=== PATIENT | female | born 1970 ===

== ENCOUNTER 2022-09-11 09:11 | Inpatient (IN) | payer OTHER ==
[~2022-09-11 09:11] MED LIST: Dexamethasone 4 MG/ML SDV ONE; Glycopyrrolate 0.2 MG/ML 5 ML MDV ONE; Neostigmine Methylsulfate 1 MG/ML 5 ML Syringe ONE; Ondansetron 4 MG/2 ML SDV ONE; Propofol 200 MG/20 ML SDV ONE; Rocuronium 50 MG/5 ML Vial ONE; Succinylcholine 200 MG/10 ML MDV ONE; fentaNYL 250 MCG/5 ML SDV ONE
[2022-09-11] MEDS ORDERED: Acetaminophen 500 MG Tab PO ONE (09:30)
[2022-09-11] MEDS ORDERED: Dextrose 5%-Lactated Ringers 1,000 ML IV SCH (09:30)
[2022-09-11] MEDS ORDERED: Scopolamine 1.5 MG Transdermal Patch TOP SCH (09:30)
[2022-09-11] MEDS ORDERED: Lidocaine 1% with EPINEPHrine 1:100,000 50 ML MDV ONE (09:40)
[2022-09-11] MEDS ORDERED: Bupivacaine 0.5% 50 ML MDV ONE (09:40)
[2022-09-11] MEDS ORDERED: Celecoxib 200 MG Cap PO ONE (10:15)
[2022-09-11] MEDS ORDERED: Ketamine 500 MG/5 ML MDV IV SCH (11:00)
[2022-09-11] MEDS ORDERED: Ketamine 14 MG in Sodium Chloride 0.9% 19.86 ML IV SCH (11:00)
[2022-09-11] MEDS ORDERED: cefOXitin 2 GM in Sodium Chloride 0.9% 50 ML IV ONE (11:00)
[2022-09-11] MEDS ORDERED: Albuterol/Ipratropium 3.0-0.5 MG/3 ML Neb Soln NEB ONE (11:00)
[2022-09-11] MEDS ORDERED: fentaNYL 250 MCG/5 ML SDV ONE (12:27)
[2022-09-11] MEDS ORDERED: Rocuronium 50 MG/5 ML Vial ONE ×2 (12:36→14:43)
[2022-09-11] MEDS ORDERED: Meropenem 500 MG SDV ONE ×2 (12:45→13:23)
[2022-09-11] MEDS ORDERED: Meropenem 500 MG SDV IRR ONE (12:47)
[2022-09-11] MEDS ORDERED: Sodium Chloride 0.9% 10 ML ONE (13:23)
[2022-09-11] MEDS ORDERED: Labetalol 20 MG/4 ML Syringe ONE (13:42)
[2022-09-11] MEDS ORDERED: Lactated Ringers 1,000 ML ONE (13:52)
[2022-09-11] MEDS ORDERED: fentaNYL 100 MCG/2 ML SDV ONE (15:18)
[2022-09-11] MEDS ORDERED: Ketoconazole 2% Crm 30 GM Tube TOP SCH (15:30)
[2022-09-11] MEDS ORDERED: Sugammadex Sodium 200 MG/2 ML VIAL ONE (15:34)
[2022-09-11] MEDS ORDERED: Ondansetron 4 MG/2 ML SDV IVPUSH PRN (15:35)
[2022-09-11] MEDS ORDERED: diphenhydrAMINE 50 MG/ML SDV IVPUSH PRN ×2 (15:35→18:00)
[2022-09-11] MEDS ORDERED: diphenhydrAMINE 25 MG Cap PO PRN (15:35)
[2022-09-11] MEDS ORDERED: Naloxone 0.4 MG/ML SDV IVPUSH PRN (15:35)
[2022-09-11] MEDS: HYDROmorphone/Normal Saline 6 MG/30 ML PCA Vial IV PRN (15:42)
[2022-09-11] MEDS ORDERED: Ondansetron 4 MG/2 ML SDV IVPUSH ONE (16:02)
[2022-09-11] MEDS ORDERED: Cyclobenzaprine 10 MG Tab PO PRN (17:14)
[2022-09-11] MEDS: cefOXitin 2 GM in Sodium Chloride 0.9% 50 ML IV SCH (17:40)
[2022-09-11] MEDS: MVI, Adult with Vitamin K 10 ML, Thiamine 200 MG, Zinc/Copper/Manganese/Selenium 1 ML i... IV SCH ×4 (17:40)
[2022-09-11] MEDS ORDERED: hydrOXYzine HCL 100 MG/2 ML SDV IM PRN (18:00)
[2022-09-11] MEDS ORDERED: Metoclopramide 10 MG/2 ML SDV IVPUSH PRN (18:00)
[2022-09-11] MEDS ORDERED: Pantoprazole 40 MG Vial IVPUSH SCH (18:00)
[2022-09-11] MEDS ORDERED: Labetalol 20 MG/4 ML Syringe IVPUSH PRN (18:00)
[2022-09-11] MEDS ORDERED: Albuterol/Ipratropium 3.0-0.5 MG/3 ML Neb Soln INH PRN (18:00)
[2022-09-11] MEDS ORDERED: Acetaminophen 500 MG Tab PO PRN (18:00)
[2022-09-11] MEDS: Ondansetron 4 MG/2 ML SDV IVPUSH PRN (20:22)
[2022-09-11] MEDS: Albuterol/Ipratropium 3.0-0.5 MG/3 ML Neb Soln INH SCH (20:27)
[2022-09-11] MEDS: Heparin Sodium 5,000 Units/ML Vial SUBCUT SCH (20:28)
[2022-09-11] MEDS: Melatonin 3 MG Tab PO SCH (20:28)
[2022-09-11] MEDS: Lisinopril 20 MG Tab PO SCH (20:29)
[2022-09-11] MEDS: buPROPion 150 MG Tab.SR PO SCH (20:29)
[2022-09-11] MEDS: Metoprolol Succinate 50 MG Tab.ER PO SCH (20:29)
[2022-09-11] MEDS: ADVAIR INH SCH (20:30)
[2022-09-11] MEDS: Montelukast 10 MG Tab PO SCH (20:30)
[2022-09-11] MEDS: rOPINIRole 0.5 MG Tab PO SCH (20:30)
[2022-09-11] MEDS ORDERED: Lisinopril 20 MG Tab PO SCH (21:00)
[2022-09-11] MEDS ORDERED: rOPINIRole 0.5 MG Tab PO SCH (21:00)
[2022-09-11] MEDS: Acetaminophen 500 MG Tab PO SCH (22:00)
[2022-09-12] MEDS: cefOXitin 2 GM in Sodium Chloride 0.9% 50 ML IV SCH ×5 (00:08→23:30)
[2022-09-12] MEDS: Dextrose 5%-Lactated Ringers 1,000 ML IV SCH ×3 (00:08→23:30)
[2022-09-12] MEDS: Ondansetron 4 MG/2 ML SDV IVPUSH PRN ×3 (03:32→17:07)
[2022-09-12] MEDS: Heparin Sodium 5,000 Units/ML Vial SUBCUT SCH ×3 (03:33→19:37)
[2022-09-12] MEDS ORDERED: Iopamidol 612 MG/ML 50 ML SDV PO STA (04:02)
[2022-09-12] MEDS: Acetaminophen 500 MG Tab PO SCH ×3 (05:21→21:57)
[2022-09-12 06:24] LABS: ESTIMATED GFR 24 mL/min (>60)
[2022-09-12] MEDS ORDERED: Albuterol 90 MCG/6.7 GM Inhaler INH PRN (07:21)
[2022-09-12] MEDS ORDERED: Dextrose 5%-Lactated Ringers 1,000 ML IV SCH (07:25)
[2022-09-12] MEDS ORDERED: Lactated Ringers 500 ML IV ONE (08:00)
[2022-09-12] MEDS: amLODIPine 5 MG Tab PO SCH (08:20)
[2022-09-12] MEDS: Metoprolol Succinate 50 MG Tab.ER PO SCH ×2 (08:20→20:13)
[2022-09-12] MEDS: buPROPion 150 MG Tab.SR PO SCH ×2 (08:21→20:14)
[2022-09-12] MEDS: Sertraline 50 MG Tab PO SCH (08:21)
[2022-09-12] MEDS: Loratadine 10 MG Tab PO SCH (08:21)
[2022-09-12] MEDS: SCOPOLAMINE PATCH CHECK TOP SCH (08:22)
[2022-09-12] MEDS ORDERED: Lactated Ringers 1,000 ML IV ONE (08:30)
[2022-09-12] MEDS ORDERED: Pantoprazole 40 MG Vial IVPUSH SCH (09:00)
[2022-09-12] MEDS ORDERED: Celecoxib 200 MG Cap PO SCH (09:00)
[2022-09-12] MEDS: HYDROmorphone/Normal Saline 6 MG/30 ML PCA Vial IV PRN (10:07)
[2022-09-12] MEDS: Albuterol/Ipratropium 3.0-0.5 MG/3 ML Neb Soln INH SCH ×4 (10:52→20:15)
[2022-09-12] MEDS: SPIRIVA HANDIHALER 18 MCG INH SCH (11:02)
[2022-09-12] MEDS: ADVAIR INH SCH ×2 (11:02→20:14)
[2022-09-12] MEDS ORDERED: Pantoprazole 40 MG Tab.CR PO SCH (16:00)
[2022-09-12] MEDS: MVI, Adult with Vitamin K 10 ML, Thiamine 200 MG, Zinc/Copper/Manganese/Selenium 1 ML i... IV SCH ×4 (17:04)
[2022-09-12] MEDS: Montelukast 10 MG Tab PO SCH (20:14)
[2022-09-12] MEDS: rOPINIRole 0.5 MG Tab PO SCH (20:14)
[2022-09-12] MEDS: Lisinopril 20 MG Tab PO SCH (20:15)
[2022-09-12] MEDS: Melatonin 3 MG Tab PO SCH (20:15)
[2022-09-13] MEDS: Heparin Sodium 5,000 Units/ML Vial SUBCUT SCH ×3 (04:41→20:20)
[2022-09-13] MEDS: Ondansetron 4 MG/2 ML SDV IVPUSH PRN (04:41)
[2022-09-13] MEDS: cefOXitin 2 GM in Sodium Chloride 0.9% 50 ML IV SCH ×2 (05:10→11:51)
[2022-09-13 05:18] LABS: ESTIMATED GFR 61 mL/min (>60)
[2022-09-13] MEDS: Acetaminophen 500 MG Tab PO SCH ×2 (05:31→14:37)
[2022-09-13] MEDS: Dextrose 5%-Lactated Ringers 1,000 ML IV SCH ×2 (06:15→15:12)
[2022-09-13] MEDS: SPIRIVA HANDIHALER 18 MCG INH SCH (06:58)
[2022-09-13] MEDS: ADVAIR INH SCH ×2 (06:58→20:17)
[2022-09-13] MEDS: Albuterol/Ipratropium 3.0-0.5 MG/3 ML Neb Soln INH SCH ×4 (06:58→20:25)
[2022-09-13] MEDS ORDERED: Acetaminophen 1,000 MG in Premix Bag 1 BAG IV STA (07:30)
[2022-09-13] MEDS: Docusate Sodium 100 MG Cap PO SCH ×2 (08:23→20:20)
[2022-09-13] MEDS: Bisacodyl 5 MG Tab PO SCH ×2 (08:23→20:17)
[2022-09-13] MEDS: Metoclopramide 10 MG/2 ML SDV IVPUSH SCH ×3 (08:23→19:58)
[2022-09-13] MEDS: buPROPion 150 MG Tab.SR PO SCH ×2 (08:24→20:17)
[2022-09-13] MEDS: SCOPOLAMINE PATCH CHECK TOP SCH (08:24)
[2022-09-13] MEDS: amLODIPine 5 MG Tab PO SCH (08:24)
[2022-09-13] MEDS: Loratadine 10 MG Tab PO SCH (08:24)
[2022-09-13] MEDS: Metoprolol Succinate 50 MG Tab.ER PO SCH ×2 (08:24→20:20)
[2022-09-13] MEDS: Sertraline 50 MG Tab PO SCH (08:24)
[2022-09-13] MEDS ORDERED: Cyanocobalamin (Vitamin B12) 1,000 MCG/ML SDV IM ONE (09:00)
[2022-09-13] MEDS ORDERED: Acetaminophen 1,000 MG in Premix Bag 1 BAG IV PRN (14:00)
[2022-09-13] MEDS: Acetaminophen 1,000 MG in Premix Bag 1 BAG IV SCH ×2 (15:11→20:13)
[2022-09-13] MEDS: Pantoprazole 40 MG Vial IVPUSH SCH (15:12)
[2022-09-13] MEDS: HYDROmorphone/Normal Saline 6 MG/30 ML PCA Vial IV PRN (19:59)
[2022-09-13] MEDS: rOPINIRole 0.5 MG Tab PO SCH (20:17)
[2022-09-13] MEDS: Lisinopril 20 MG Tab PO SCH (20:18)
[2022-09-13] MEDS: Celecoxib 200 MG Cap PO SCH (20:21)
[2022-09-13] MEDS: Montelukast 10 MG Tab PO SCH (20:21)
[2022-09-13] MEDS: Melatonin 3 MG Tab PO SCH (20:21)
[2022-09-14] MEDS: Metoclopramide 10 MG/2 ML SDV IVPUSH SCH ×4 (01:37→20:50)
[2022-09-14] MEDS: Dextrose 5%-Lactated Ringers 1,000 ML IV SCH ×2 (01:59→23:11)
[2022-09-14] MEDS: Acetaminophen 1,000 MG in Premix Bag 1 BAG IV SCH ×2 (02:31→09:16)
[2022-09-14] MEDS ORDERED: Iopamidol 612 MG/ML 50 ML SDV PO ONE (02:55)
[2022-09-14] MEDS: Heparin Sodium 5,000 Units/ML Vial SUBCUT SCH ×3 (05:04→20:49)
[2022-09-14 05:27] LABS: ESTIMATED GFR 55 mL/min (>60)
[2022-09-14] MEDS: Albuterol/Ipratropium 3.0-0.5 MG/3 ML Neb Soln INH SCH ×4 (06:56→20:51)
[2022-09-14] MEDS: SPIRIVA HANDIHALER 18 MCG INH SCH (06:57)
[2022-09-14] MEDS: ADVAIR INH SCH ×2 (06:57→20:53)
[2022-09-14] MEDS: Loratadine 10 MG Tab PO SCH (09:13)
[2022-09-14] MEDS: Celecoxib 200 MG Cap PO SCH ×2 (09:13→20:50)
[2022-09-14] MEDS: Bisacodyl 5 MG Tab PO SCH ×2 (09:14→20:50)
[2022-09-14] MEDS: Docusate Sodium 100 MG Cap PO SCH ×2 (09:14→20:50)
[2022-09-14] MEDS: amLODIPine 5 MG Tab PO SCH (09:15)
[2022-09-14] MEDS: Metoprolol Succinate 50 MG Tab.ER PO SCH ×2 (09:17→20:54)
[2022-09-14] MEDS: buPROPion 150 MG Tab.SR PO SCH ×2 (09:18→20:54)
[2022-09-14] MEDS: Sertraline 50 MG Tab PO SCH (09:18)
[2022-09-14] MEDS ORDERED: Acetaminophen/Caffeine 500-65 MG Tab PO PRN (14:00)
[2022-09-14] MEDS: Acetaminophen 500 MG Tab PO SCH ×2 (15:12→21:01)
[2022-09-14] MEDS: Pantoprazole 40 MG Vial IVPUSH SCH (15:12)
[2022-09-14] MEDS: Melatonin 3 MG Tab PO SCH (20:51)
[2022-09-14] MEDS: Lisinopril 20 MG Tab PO SCH (20:52)
[2022-09-14] MEDS: Montelukast 10 MG Tab PO SCH (20:55)
[2022-09-14] MEDS: rOPINIRole 0.5 MG Tab PO SCH (20:55)
[2022-09-15] MEDS: Metoclopramide 10 MG/2 ML SDV IVPUSH SCH ×4 (03:01→20:16)
[2022-09-15] MEDS: Heparin Sodium 5,000 Units/ML Vial SUBCUT SCH ×3 (05:13→20:16)
[2022-09-15 05:33] LABS: ESTIMATED GFR 68 mL/min (>60)
[2022-09-15] MEDS: Acetaminophen 500 MG Tab PO SCH ×3 (05:57→21:59)
[2022-09-15] MEDS: ADVAIR INH SCH ×3 (07:28→20:16)
[2022-09-15] MEDS: Albuterol/Ipratropium 3.0-0.5 MG/3 ML Neb Soln INH SCH ×4 (07:28→20:28)
[2022-09-15] MEDS: SPIRIVA HANDIHALER 18 MCG INH SCH (07:29)
[2022-09-15] MEDS ORDERED: oxyCODONE 5 MG Tab PO PRN (08:33)
[2022-09-15] MEDS: Celecoxib 200 MG Cap PO SCH ×2 (08:39→20:12)
[2022-09-15] MEDS: Bisacodyl 5 MG Tab PO SCH ×2 (08:39→20:12)
[2022-09-15] MEDS: Sertraline 50 MG Tab PO SCH (08:39)
[2022-09-15] MEDS: buPROPion 150 MG Tab.SR PO SCH ×2 (08:39→20:14)
[2022-09-15] MEDS: Docusate Sodium 100 MG Cap PO SCH ×2 (08:39→20:12)
[2022-09-15] MEDS: Loratadine 10 MG Tab PO SCH (08:40)
[2022-09-15] MEDS: amLODIPine 5 MG Tab PO SCH (08:40)
[2022-09-15] MEDS: Metoprolol Succinate 50 MG Tab.ER PO SCH ×2 (08:41→20:13)
[2022-09-15] MEDS ORDERED: Magnesium Hydroxide 400 MG/5 ML Susp 30 ML Cup PO ONE (09:00)
[2022-09-15] MEDS ORDERED: Furosemide 20 MG/2 ML VIAL IV ONE (09:00)
[2022-09-15] MEDS: Dextrose 5%-Lactated Ringers 1,000 ML IV SCH ×2 (10:04→20:30)
[2022-09-15] MEDS ORDERED: Magnesium Hydroxide 400 MG/5 ML Susp 30 ML Cup PO PRN (12:00)
[2022-09-15] MEDS: Pantoprazole 40 MG Tab.CR PO SCH (15:41)
[2022-09-15] MEDS: Melatonin 3 MG Tab PO SCH (20:12)
[2022-09-15] MEDS: Lisinopril 20 MG Tab PO SCH (20:13)
[2022-09-15] MEDS: Montelukast 10 MG Tab PO SCH (20:13)
[2022-09-15] MEDS: rOPINIRole 0.5 MG Tab PO SCH (20:13)
[2022-09-16] MEDS: Metoclopramide 10 MG/2 ML SDV IVPUSH SCH ×4 (02:02→20:30)
[2022-09-16] MEDS: Heparin Sodium 5,000 Units/ML Vial SUBCUT SCH ×3 (04:19→20:23)
[2022-09-16 04:54] LABS: ESTIMATED GFR 77 mL/min (>60)
[2022-09-16] MEDS: Acetaminophen 500 MG Tab PO SCH ×4 (05:59→22:29)
[2022-09-16] MEDS: Dextrose 5%-Lactated Ringers 1,000 ML IV SCH (06:01)
[2022-09-16] MEDS: ADVAIR INH SCH ×2 (07:34→20:32)
[2022-09-16] MEDS: SPIRIVA HANDIHALER 18 MCG INH SCH (07:34)
[2022-09-16] MEDS: Albuterol/Ipratropium 3.0-0.5 MG/3 ML Neb Soln INH SCH ×4 (07:34→20:36)
[2022-09-16] MEDS: Sertraline 50 MG Tab PO SCH (08:38)
[2022-09-16] MEDS: Docusate Sodium 100 MG Cap PO SCH ×2 (08:38→20:24)
[2022-09-16] MEDS: Bisacodyl 5 MG Tab PO SCH ×2 (08:38→20:28)
[2022-09-16] MEDS: Celecoxib 200 MG Cap PO SCH ×2 (08:38→20:23)
[2022-09-16] MEDS: Loratadine 10 MG Tab PO SCH (08:39)
[2022-09-16] MEDS: Metoprolol Succinate 50 MG Tab.ER PO SCH ×2 (08:39→20:24)
[2022-09-16] MEDS: amLODIPine 5 MG Tab PO SCH (08:39)
[2022-09-16] MEDS: buPROPion 150 MG Tab.SR PO SCH ×2 (08:40→20:28)
[2022-09-16] MEDS: Potassium Phos in 0.9 % NaCl 15 MMOL in Premix Bag 1 BAG IV SCH ×4 (09:07→14:54)
[2022-09-16] MEDS: Magnesium Oxide 400 MG Tab PO SCH ×2 (09:07→20:28)
[2022-09-16] MEDS ORDERED: Potassium Chloride 20 MEQ Tab.ER PO ONE (09:30)
[2022-09-16] MEDS: Pantoprazole 40 MG Tab.CR PO SCH (16:47)
[2022-09-16] MEDS: Lisinopril 20 MG Tab PO SCH (20:27)
[2022-09-16] MEDS: Montelukast 10 MG Tab PO SCH (20:28)
[2022-09-16] MEDS: Melatonin 3 MG Tab PO SCH (20:29)
[2022-09-16] MEDS: rOPINIRole 0.5 MG Tab PO SCH (20:33)
[2022-09-17] MEDS: Metoclopramide 10 MG/2 ML SDV IVPUSH SCH ×2 (02:34→07:39)
[2022-09-17] MEDS: Heparin Sodium 5,000 Units/ML Vial SUBCUT SCH (04:22)
[2022-09-17 05:25] LABS: ESTIMATED GFR 77 mL/min (>60)
[2022-09-17] MEDS: Acetaminophen 500 MG Tab PO SCH (05:49)
[2022-09-17] MEDS: ADVAIR INH SCH (07:17)
[2022-09-17] MEDS: Albuterol/Ipratropium 3.0-0.5 MG/3 ML Neb Soln INH SCH (07:17)
[2022-09-17] MEDS: SPIRIVA HANDIHALER 18 MCG INH SCH (07:17)
[2022-09-17] MEDS ORDERED: Potassium Chloride 20 MEQ Tab.ER PO ONE (07:45)
[2022-09-17] MEDS: Metoprolol Succinate 50 MG Tab.ER PO SCH (08:12)
[2022-09-17] MEDS: Bisacodyl 5 MG Tab PO SCH (08:13)
[2022-09-17] MEDS: amLODIPine 5 MG Tab PO SCH (08:13)
[2022-09-17] MEDS: Docusate Sodium 100 MG Cap PO SCH (08:13)
[2022-09-17] MEDS: Sertraline 50 MG Tab PO SCH (08:13)
[2022-09-17] MEDS: Magnesium Oxide 400 MG Tab PO SCH (08:13)
[2022-09-17] MEDS: buPROPion 150 MG Tab.SR PO SCH (08:13)
[2022-09-17] MEDS: Celecoxib 200 MG Cap PO SCH (08:13)
[2022-09-17] MEDS: Loratadine 10 MG Tab PO SCH (08:13)
[2022-09-17] MEDS ORDERED: Apixaban 5 MG Tab PO SCH (09:00)
== END 2022-09-17 10:29 | disposition home or self-care (01) | DRG 620 ==
LOC: JP.SDS 09:11 → JP.SDSSCHI 09:11 → EDSTATUS 10:45 → JP.MS 16:15
PROVIDERS: ADMIT Surgery; ATTEND Surgery
PROC: 0D190ZB Bypass Duodenum to Ileum, Open Approach (ICD-10-PCS; principal; 2022-09-11)
PROC: 0WQF0ZZ Repair Abdominal Wall, Open Approach (ICD-10-PCS; 2022-09-11)
PROC: 0DBU0ZZ Excision of Omentum, Open Approach (ICD-10-PCS; 2022-09-11)
PROC: 0FB20ZX Excision of Left Lobe Liver, Open Approach, Diagnostic (ICD-10-PCS; 2022-09-11)
PROC: 0DB60Z3 Excision of Stomach, Open Approach, Vertical (ICD-10-PCS; 2022-09-11)
DX: E66.01 Morbid (severe) obesity due to excess calories (principal); K43.0 Incisional hernia with obstruction, without gangrene; N18.2 Chronic kidney disease, stage 2 (mild); F41.1 Generalized anxiety disorder; G25.81 Restless legs syndrome; G47.33 Obstructive sleep apnea (adult) (pediatric); J44.9 Chronic obstructive pulmonary disease, unspecified; I12.9 Hypertensive chronic kidney disease with stage 1 through stage 4 chronic kidney disease, or unspecified chronic kidney disease; R16.0 Hepatomegaly, not elsewhere classified; Z79.899 Other long term (current) drug therapy; Z88.0 Allergy status to penicillin; Z91.09 Other allergy status, other than to drugs and biological substances; Z68.45 Body mass index [BMI] 70 or greater, adult
CPT/HCPCS: 36415; 74240; 74240-26; 80048; 80053; 82947; 83735; 83880; 84100; 85025; 85027; 86850; 86900; 86901; 88302; 88305; 88307; 88313; 94640; A9270-GY; C9113; J0131; J0171; J0330; J0694; J1100; J1170; J1644; J1940; J2185; J2405; J2704; J2710; J2765; J2795; J3010; J3411; J3420; J3490; J7120; J7121; J7620; Q9967

== ENCOUNTER 2022-10-07 21:57 | Inpatient (IN) | payer OTHER ==
[2022-10-08] MEDS ORDERED: HYDROmorphone 0.5 MG/0.5 ML Syringe IVPUSH PRN (00:15)
[2022-10-08] MEDS ORDERED: Ondansetron 4 MG/2 ML SDV IV PRN (00:15)
[2022-10-08] MEDS ORDERED: Sodium Chloride 0.9% 10 ML Syringe FLUSH PRN (00:15)
[2022-10-08] MEDS ORDERED: Ondansetron 4 MG Tab.DIS PO PRN (00:15)
[2022-10-08] MEDS: Pantoprazole 40 MG Vial IV SCH ×2 (01:14→21:46)
[2022-10-08] MEDS ORDERED: Lactated Ringers 1,000 ML IV SCH (01:15)
[2022-10-08 01:38] LABS: CORONAVIRUS COVID-19 NAA NEGATIVE (NEGATIVE)
[2022-10-08] MEDS ORDERED: Ondansetron 4 MG/2 ML SDV IVPUSH PRN (07:27)
[2022-10-08] MEDS ORDERED: diphenhydrAMINE 50 MG/ML SDV IVPUSH PRN (07:27)
[2022-10-08] MEDS ORDERED: Naloxone 0.4 MG/ML SDV IVPUSH PRN (07:27)
[2022-10-08] MEDS ORDERED: diphenhydrAMINE 25 MG Cap PO PRN (07:27)
[2022-10-08] MEDS ORDERED: HYDROmorphone/Normal Saline 6 MG/30 ML PCA Vial IV PRN (07:27)
[2022-10-08] MEDS ORDERED: Ketamine 500 MG/5 ML MDV IV SCH ×3 (07:30→12:00)
[2022-10-08] MEDS ORDERED: Meropenem 500 MG SDV ONE (07:55)
[2022-10-08] MEDS ORDERED: Meropenem 500 MG in Sodium Chloride 0.9% 50 ML IV ONE (08:00)
[2022-10-08] MEDS: Formoterol/Mometasone 200-5 MCG 8.8 GM Inhaler IH SCH ×2 (08:47→21:38)
[2022-10-08] MEDS ORDERED: Non-Formulary Medication 1 Each (Fluticasone Propion/Salmeterol [Fluticasone-Salmeterol 11 IH SCH (09:00)
[2022-10-08] MEDS: Potassium Chloride 10 MEQ in Premix Bag 1 BAG IV SCH ×2 (09:35→11:39)
[2022-10-08] MEDS: Lisinopril 20 MG Tab PO SCH (09:35)
[2022-10-08] MEDS: amLODIPine 5 MG Tab PO SCH (09:36)
[2022-10-08] MEDS: Sertraline 50 MG Tab PO SCH (09:41)
[2022-10-08] MEDS: Loratadine 10 MG Tab PO SCH (09:41)
[2022-10-08] MEDS ORDERED: Rocuronium 50 MG/5 ML Vial ONE (10:30)
[2022-10-08] MEDS ORDERED: Dexamethasone 4 MG/ML SDV ONE (10:30)
[2022-10-08] MEDS ORDERED: Propofol 200 MG/20 ML SDV ONE (10:30)
[2022-10-08] MEDS ORDERED: Glycopyrrolate 0.2 MG/ML 5 ML MDV ONE (10:30)
[2022-10-08] MEDS ORDERED: Ondansetron 4 MG/2 ML SDV ONE (10:30)
[2022-10-08] MEDS ORDERED: Succinylcholine 200 MG/10 ML MDV ONE (10:30)
[2022-10-08] MEDS ORDERED: Neostigmine Methylsulfate 1 MG/ML 5 ML Syringe ONE (10:30)
[2022-10-08] MEDS ORDERED: fentaNYL 250 MCG/5 ML SDV ONE ×2 (10:34→13:28)
[2022-10-08] MEDS ORDERED: Linezolid 600 MG in Premix Bag 1 BAG IV ONE (11:00)
[2022-10-08] MEDS ORDERED: Albuterol/Ipratropium 3.0-0.5 MG/3 ML Neb Soln NEB ONE (11:00)
[2022-10-08] MEDS ORDERED: Ketamine 14 MG in Sodium Chloride 0.9% 19.86 ML IV SCH (12:00)
[2022-10-08] MEDS: Linezolid 600 MG/300 ML Premix Bag IRR ONE (12:38)
[2022-10-08] MEDS ORDERED: Ketoconazole 2% Crm 30 GM Tube ONE (13:10)
[2022-10-08] MEDS ORDERED: Lactated Ringers 1,000 ML ONE (13:17)
[2022-10-08] MEDS: MVI, Adult with Vitamin K 10 ML, Zinc/Copper/Manganese/Selenium 1 ML, Thiamine 200 MG i... IV SCH ×8 (16:34→17:12)
[2022-10-08] MEDS: Meropenem 500 MG in Sodium Chloride 0.9% 50 ML IV SCH ×2 (16:34→21:46)
[2022-10-08] MEDS ORDERED: Non-Formulary Medication 1 Each (Melatonin [Melatonin] 10 MG Cap) PO SCH (21:00)
[2022-10-08] MEDS: Melatonin 3 MG Tab PO SCH (21:41)
[2022-10-08] MEDS: rOPINIRole 0.5 MG Tab PO SCH (21:46)
[2022-10-08] MEDS: Enoxaparin 60 MG/0.6 ML Syringe SUBCUT SCH (21:51)
[2022-10-08] MEDS: Montelukast 10 MG Tab PO SCH (21:53)
[2022-10-08] MEDS: Linezolid 600 MG in Premix Bag 1 BAG IV SCH (23:10)
[2022-10-09] MEDS: Dextrose 5%-Lactated Ringers 1,000 ML IV SCH ×2 (02:17→09:00)
[2022-10-09] MEDS: Meropenem 500 MG in Sodium Chloride 0.9% 50 ML IV SCH ×4 (04:25→21:39)
[2022-10-09 06:10] LABS: ESTIMATED GFR 68 mL/min (>60)
[2022-10-09] MEDS ORDERED: Meropenem 500 MG SDV ONE (06:53)
[2022-10-09] MEDS ORDERED: Propofol 200 MG/20 ML SDV ONE ×3 (07:09→07:35)
[2022-10-09] MEDS ORDERED: fentaNYL 100 MCG/2 ML SDV ONE (07:31)
[2022-10-09] MEDS ORDERED: Bupivacaine 0.5% 30 ML SDV ONE (07:36)
[2022-10-09] MEDS ORDERED: Lidocaine 1% with EPINEPHrine 1:100,000 50 ML MDV ONE (07:36)
[2022-10-09] MEDS: Formoterol/Mometasone 200-5 MCG 8.8 GM Inhaler IH SCH ×2 (08:46→21:39)
[2022-10-09] MEDS: Loratadine 10 MG Tab PO SCH (08:54)
[2022-10-09] MEDS: Sertraline 50 MG Tab PO SCH (08:54)
[2022-10-09] MEDS: amLODIPine 5 MG Tab PO SCH (08:54)
[2022-10-09] MEDS: Lisinopril 20 MG Tab PO SCH (08:54)
[2022-10-09] MEDS: Enoxaparin 60 MG/0.6 ML Syringe SUBCUT SCH ×2 (09:00→21:40)
[2022-10-09] MEDS: Linezolid 600 MG/300 ML Premix Bag IRR ONE (09:06)
[2022-10-09] MEDS ORDERED: Meropenem 500 MG SDV IRR ONE (09:08)
[2022-10-09] MEDS: Linezolid 600 MG in Premix Bag 1 BAG IV SCH ×2 (11:48→22:40)
[2022-10-09] MEDS: MVI, Adult with Vitamin K 10 ML, Zinc/Copper/Manganese/Selenium 1 ML, Thiamine 200 MG i... IV SCH ×4 (17:04)
[2022-10-09] MEDS: rOPINIRole 0.5 MG Tab PO SCH (21:39)
[2022-10-09] MEDS: Melatonin 3 MG Tab PO SCH (21:39)
[2022-10-09] MEDS: Pantoprazole 40 MG Vial IV SCH (21:39)
[2022-10-09] MEDS: Montelukast 10 MG Tab PO SCH (21:40)
[2022-10-10] MEDS: Dextrose 5%-Lactated Ringers 1,000 ML IV SCH (02:49)
[2022-10-10] MEDS: Meropenem 500 MG in Sodium Chloride 0.9% 50 ML IV SCH ×4 (04:59→20:19)
[2022-10-10 05:13] LABS: ESTIMATED GFR 77 mL/min (>60)
[2022-10-10] MEDS ORDERED: Dextrose 5%-Lactated Ringers 1,000 ML IV SCH (07:21)
[2022-10-10] MEDS: Loratadine 10 MG Tab PO SCH (08:30)
[2022-10-10] MEDS: Sertraline 50 MG Tab PO SCH (08:30)
[2022-10-10] MEDS: Lisinopril 20 MG Tab PO SCH (08:30)
[2022-10-10] MEDS: amLODIPine 5 MG Tab PO SCH (08:31)
[2022-10-10] MEDS: Formoterol/Mometasone 200-5 MCG 8.8 GM Inhaler IH SCH ×2 (08:31→20:18)
[2022-10-10] MEDS: Enoxaparin 60 MG/0.6 ML Syringe SUBCUT SCH ×2 (09:04→21:02)
[2022-10-10] MEDS: Linezolid 600 MG in Premix Bag 1 BAG IV SCH ×2 (09:21→21:00)
[2022-10-10] MEDS: HYDROmorphone 2 MG Tab PO PRN ×2 (09:53→18:08)
[2022-10-10] MEDS: Melatonin 3 MG Tab PO SCH (20:19)
[2022-10-10] MEDS: Montelukast 10 MG Tab PO SCH (20:20)
[2022-10-10] MEDS: Pantoprazole 40 MG Tab.CR PO SCH (20:20)
[2022-10-10] MEDS: rOPINIRole 0.5 MG Tab PO SCH (20:20)
[2022-10-11] MEDS: Meropenem 500 MG in Sodium Chloride 0.9% 50 ML IV SCH (03:04)
[2022-10-11 04:45] LABS: ESTIMATED GFR 77 mL/min (>60)
[2022-10-11] MEDS: amLODIPine 5 MG Tab PO SCH (08:10)
[2022-10-11] MEDS: Lisinopril 20 MG Tab PO SCH (08:11)
[2022-10-11] MEDS: Loratadine 10 MG Tab PO SCH (08:11)
[2022-10-11] MEDS: Sertraline 50 MG Tab PO SCH (08:11)
[2022-10-11] MEDS: Formoterol/Mometasone 200-5 MCG 8.8 GM Inhaler IH SCH ×2 (08:12→20:29)
[2022-10-11] MEDS: cefOXitin 2 GM in Sodium Chloride 0.9% 50 ML IV SCH ×3 (08:54→20:34)
[2022-10-11] MEDS: Enoxaparin 60 MG/0.6 ML Syringe SUBCUT SCH ×2 (10:19→21:03)
[2022-10-11] MEDS: HYDROmorphone 2 MG Tab PO PRN (10:30)
[2022-10-11] MEDS: Melatonin 3 MG Tab PO SCH (20:30)
[2022-10-11] MEDS: rOPINIRole 0.5 MG Tab PO SCH (20:30)
[2022-10-11] MEDS: Montelukast 10 MG Tab PO SCH (20:30)
[2022-10-11] MEDS: Pantoprazole 40 MG Tab.CR PO SCH (20:30)
[2022-10-12] MEDS: cefOXitin 2 GM in Sodium Chloride 0.9% 50 ML IV SCH ×2 (04:34→08:00)
[2022-10-12] MEDS: Formoterol/Mometasone 200-5 MCG 8.8 GM Inhaler IH SCH (07:59)
[2022-10-12] MEDS: Loratadine 10 MG Tab PO SCH (08:00)
[2022-10-12] MEDS: amLODIPine 5 MG Tab PO SCH (08:00)
[2022-10-12] MEDS: Enoxaparin 60 MG/0.6 ML Syringe SUBCUT SCH ×2 (08:01→09:08)
[2022-10-12] MEDS: Lisinopril 20 MG Tab PO SCH (08:01)
[2022-10-12] MEDS: Sertraline 50 MG Tab PO SCH (08:01)
[2022-10-12] MEDS: HYDROmorphone 2 MG Tab PO PRN (09:19)
== END 2022-10-12 11:45 | disposition home or self-care (01) | DRG 902 ==
LOC: JP.MS 10-08 00:10
PROVIDERS: ADMIT Registered Nurse; ATTEND Surgery
PROC: 0JB80ZZ Excision of Abdomen Subcutaneous Tissue and Fascia, Open Approach (ICD-10-PCS; principal; 2022-10-08)
PROC: 0WBF0ZZ Excision of Abdominal Wall, Open Approach (ICD-10-PCS; 2022-10-08)
PROC: 0WQF0ZZ Repair Abdominal Wall, Open Approach (ICD-10-PCS; 2022-10-08)
PROC: 0J980ZZ Drainage of Abdomen Subcutaneous Tissue and Fascia, Open Approach (ICD-10-PCS; 2022-10-08)
DX: T81.31XA Disruption of external operation (surgical) wound, not elsewhere classified, initial encounter (principal); I96 Gangrene, not elsewhere classified; L02.216 Cutaneous abscess of umbilicus
CPT/HCPCS: 0241U; 36415; 76998; 80048; 80053; 83735; 83880; 84100; 85025; 85027; 87070; 87075; 87077; 87186; 87205; 88304; 94640; 97110-GP; 97162-GP; 97530-GP; 97535-GP; A9270-GY; C9113; J0330; J0694; J1100; J1170; J1650; J2020; J2185; J2405; J2704; J2710; J3010; J3411; J3480; J3490; J7120; J7121; J7620; P9047; Q0162